=== PATIENT | female | born 1955 | race Caucasian/White ===

== ENCOUNTER 2022-01-13 23:49 | Emergency (ER) | payer OTHER ==
[~2022-01-13] VITALS: Ht 172.7 cm; Wt 85.9 kg
[2022-01-14] MEDS ORDERED: LURA80TA2 PO (00:11)
[2022-01-14] MEDS ORDERED: ATOR20TA65 PO (00:11)
[2022-01-14] MEDS ORDERED: METF-81 PO (00:11)
[2022-01-14] MEDS ORDERED: LURA40TA2 PO (00:11)
[2022-01-14] MEDS ORDERED: GABA-1181 PO (00:11)
[2022-01-14] MEDS ORDERED: HYDR-4808 PO (00:11)
[2022-01-14] MEDS ORDERED: METO100T14 PO (00:11)
[2022-01-14] MEDS ORDERED: VENL-68 PO (00:11)
[2022-01-14] MEDS ORDERED: FAMO20TA8 PO (00:11)
[2022-01-14] MEDS ORDERED: GLIM1TAB18 PO (00:11)
[2022-01-14 00:18] LABS: BASOPHILS % (AUTO) 0.7 % (0.0-2.0); EOSINOPHILS % (AUTO) 1.3 % (1.0-6.0); HEMATOCRIT 40.2 % (36-46); HEMOGLOBIN 13.8 g/dL (12.0-16.0); LYMPHOCYTES # (AUTO) 5.4 K/uL (1.0-4.8); LYMPHOCYTES % (AUTO) 36.5 % (22.0-44.0); MEAN CORPUSCULAR HGB CONC 34.3 G/dL (31.0-37.0); MEAN CORPUSCULAR VOLUME 91 fL (80-100); MONOCYTES # (AUTO) 1.1 K/uL (0.1-1.0); MONOCYTES % (AUTO) 7.7 % (2.0-9.0); NEUTROPHILS % (AUTO) 53.8 % (40.0-70.0); PLATELET COUNT (AUTO) 197 K/uL (150-450); RED BLOOD CELL COUNT(AUTO) 4.44 MIL/uL (4.00-5.20); RED CELL DISTRIBUTION WIDTH 13.7 % (11.5-14.5)
[2022-01-14 00:27] LABS: ANION GAP 9 mmol/L (8-16); CALCIUM, TOTAL 10.4 mg/dL (8.8-10.5); CARBON DIOXIDE 25 mmol/L (22-29); CHLORIDE 100 mmol/L (98-107); CREATININE 1.28 mg/dL (0.60-1.30); GLUCOSE,RANDOM 265 mg/dL (70-110); POTASSIUM 4.3 mmol/L (3.5-5.1); SODIUM SERUM 134 mmol/L (136-145); UREA NITROGEN, BLOOD 27 mg/dL (7-18)
[2022-01-14 00:33] LABS: ALANINE AMINOTRANSFERASE 67 U/L (12-78); ALBUMIN 3.9 g/dL (3.4-5.0); ALKALINE PHOSPHATASE 268 U/L (46-116); ASPARTATE AMINOTRANSFERASE 51 U/L (15-37); BILIRUBIN,TOTAL 0.6 mg/dL (0.1-1.0); TOTAL PROTEIN, SERUM 7.7 g/dL (6.4-8.2)
[2022-01-14 00:39] LABS: GLOMERULAR FILTR. RATE CALC 42 mL/min (>60)
[2022-01-14 01:08] LABS: COVID AG,FIA SOURCE NASOPHARYNGEAL
[2022-01-14 02:12] VITALS: BP 137/70
== END 2022-01-14 02:26 | disposition home or self-care (01) ==
LOC: EMS 23:57
DX: Z04.6 Encounter for general psychiatric examination, requested by authority (principal); Z20.822 Contact with and (suspected) exposure to COVID-19; F31.9 Bipolar disorder, unspecified; E11.9 Type 2 diabetes mellitus without complications; E78.00 Pure hypercholesterolemia, unspecified; I10 Essential (primary) hypertension
CPT/HCPCS: 36415; 80053; 85025; 87426; 99285; G0480